=== PATIENT | female | born 1995 ===

== ENCOUNTER 2023-01-13 05:47 | Day surgery (SDC) | payer OTHER | END 2023-01-13 10:55 | disposition home or self-care (01) | LOC: CIR.AMB 05:47 | PROVIDERS: ATTEND Orthopaedic Surgery Hand Surgery | DX: S62.616A Displaced fracture of proximal phalanx of right little finger, initial encounter for closed fracture (principal); Z20.822 Contact with and (suspected) exposure to COVID-19 ==